=== PATIENT | male | born 1945 | race Caucasian/White ===

== ENCOUNTER 2017-04-16 09:30 | Day surgery (SDC) | payer BC ==
[2017-04-13 08:52] LABS: BASOPHILS 0.3 %; BASOPHILS ABSOLUTE 0.03 10/3/uL (0.0-0.16); EOSINOPHILS 4.7 %; EOSINOPHILS ABSOLUTE 0.46 10/3/uL (0.0-0.53); IMMATURE GRANULOCYTES 0.4 %; IMMATURE GRANULOCYTES ABSOLUTE 0.04 10/3/uL (0.0-0.11); LYMPHOCYTES ABSOLUTE 2.27 10/3/uL (0.67-4.30); MEAN CORPUS HGB CONC 33.6 g/dL (32.0-36.0); MEAN PLATELET VOLUME 9.8 fL (9.2-13.0); MONOCYTES ABSOLUTE 1.09 10/3/uL (0.21-1.20); NEUTROPHILS 60.6 %; NEUTROPHILS ABSOLUTE 5.99 10/3/uL (2.02-8.40); RBC DISTRIBUTION WIDTH 15.7 % (12.0-16.0); WHITE BLOOD CELLS 9.9 10/3/uL (4.5-10.5)
[2017-04-13 08:53] LABS: HEMATOCRIT 41.4 % (40.0-51.0); HEMOGLOBIN 13.9 g/dL (13.6-17.8); MANUAL DIFF NO %; MEAN CORPUSCULAR VOLUME 89.4 fL (80-100); PLATELET COUNT 337 10/3/uL (150-400); RED CELL COUNT 4.63 10/6/uL (4.7-6.1)
[2017-04-13 08:58] LABS: INTERNATIONAL NORMAL RATI 1.1 UNITS (-); PARTIAL THROMBO TIME 33.1 SEC (22.5-37.2)
[2017-04-13 08:59] LABS: PROTIME (NOT ORD) 13.9 SEC (12.0-14.5)
[2017-04-13 09:09] LABS: CHLORIDE, SERUM 103 MMOL/L (96-112); CHOL/HDL RATIO(NOT ORDER) 3.4 (0-5); CHOLESTEROL 164 MG/DL (< 200); CO2 (CARBON DIOXIDE) 27 MMOL/L (24-34); CREATININE 0.98 MG/DL (0.70-1.30); GFR AFRICAN AMERICAN 91 ML/MIN (>=60); GFR NON AFRICAN AMERICAN 78 ML/MIN (>=60); GLUCOSE, SERUM 138 MG/DL (60-99); HDL CHOLESTEROL 48 MG/DL (> 39); NON-HDL CHOLESTEROL 116 MG/DL (< 160); POTASSIUM, SERUM 3.8 MMOL/L (3.5-5.3); SGOT(AST) 21 U/L (5-40); SGPT(ALT) 25 U/L (5-65); SODIUM, SERUM 139 MMOL/L (135-148); TOTAL BILIRUBIN 0.4 MG/DL (0-1.2)
[2017-04-13 09:12] LABS: ALBUMIN 3.8 G/DL (3.5-5.0); ALKALINE PHOSPHATASE 178 U/L (45-117); BUN (BLOOD UREA NITROGEN) 16 MG/DL (6-23); CALCIUM, SERUM 9.1 MG/DL (8.5-10.4); GLOBULIN 3.9 G/DL (2.5-4.1); LDL CHOLESTEROL 95 MG/DL (< 130); TOTAL PROTEIN 7.7 G/DL (6.0-8.5); TRIGLYCERIDE 106 MG/DL (< 150)
[2017-04-13 09:20] LABS: ASCORBIC ACID (UR NOT ORDER) NEG (NEG); BILIRUBIN, URINE NEGATIVE (NEG); KETONE, URINE NEGATIVE (NEG); LEUKOCYTE ESTERASE(NOT OR NEG (NEG); WBC (NOT ORDERED) (RFLEX) 1 (0-5)
--- NOTE | ~2017-04-16 | OP ---
Record Of Operation [facility] [address] [place]. [address] NAME: SMITA HUNTER : 49 STATUS : REG [facility] [place] PAT#: [id number] AGE: 71 ADM/REG DATE : 04/16/17 MR#: [id number] REPORT SERV DATE: 04/16/17 DICTATED BY: MARIO SIFUENTES DATE: 04/16/17 REPORT STATUS : Draft TRANSCRIBED BY: MODL DATE: 04/16/17 DATE OF PROCEDURE: PREOPERATIVE DIAGNOSIS: Lap band tubing leak. POSTOPERATIVE DIAGNOSIS: Lap band tubing leak. OPERATION: Replacement of a port tubing section of the lap band. ANESTHESIA: General endotracheal. COMPLICATIONS: None. DESCRIPTION OF PROCEDURE: The patient was taken to the operative room and after adequate general endotracheal anesthesia, was prepped and draped in a sterile manner. We made an incision on top of the access port. Carefully we excised the encapsulation tissue around the access port. the access port from the sutures. Removed the access port. When we pulled that out, we verified there was a leak at the level of the metal connector close to the access port. It was clearly eroded and kind of wear off on the area that it was rubbing against the metal connector, so we transected the tubing away from the metal connector, got a new port with a new section of the tubing and then put it back in place with a new metal connector and then we flushed and aspirated and verified that all the system was fine. There was no evidence of leakage and then we sutured with four stitches of Nurolon to the fascia and then closed the subcutaneous tissue with Vicryl 2-0 in interrupted fashion and closed the skin with subcuticular Monocryl 4-0. The patient tolerated the procedure well without any problems. ADELA Mario Leigh M.D. / [id number] CC: Abraham Trevino M.D.
[~2017-04-16 09:30] MED LIST: ALEVE220 MG PO; ALLERGY IM; ALLERGY INJ IM; ASAB PO; BENICAR HCT1 TA2 PO; CEFADROXIL PO; CELEBREX2 PO; CIALIS20 MG PO; CO Q-10100 MG PO; COQ10100 MG OR; CYMBALTA30 PO; CYMBALTA60 PO; DULERA 200 MCG/13 GM INH; FISH OIL1200 MG PO; FISH-EPA1000 MG PO; FLEX PO; GLUCCHONDR PO; GLUCOPHAGE1000 MG PO; GLUCPH PO; IBU-200200 MG PO; KLOR-CON 1010 MEQ PO; KLOR-CON M2020 MEQ PO; KOREAN GINSENG PO; L20 PO; LIPITOR20 PO; LYRICA100 MG PO; LYRICA50 PO; MULTIPLE VIT PO; NIACIN 500 PO; NORCO1 TA2 PO; NORV5 PO; PCET PO; PRAV10 PO; PREVAGEN PO; PROAIRRESP INH; PROBIOTICS PO; PROTONIX20 MG PO; TRAZ50 PO; TYLENOL ARTH650 MG PO; V5 PO; VYVANSE40 MG OR; VYVANSE50 MG PO; WELLSR150 PO; ZESTORETIC PO; ZETIA PO; [UNRECOGNIZED DRUG - OTHER] PO
[2017-06-09] MEDS ORDERED: [UNRECOGNIZED DRUG - OTHER] PO (08:51)
== END 2017-04-16 14:37 | disposition home or self-care (01) ==
LOC: SDC 09:30
PROVIDERS: Surgery
PROC: 0DV60CZ Restriction of Stomach with Extraluminal Device, Open Approach (ICD-10-PCS; 2017-04-16)
PROC: 0DP60CZ Removal of Extraluminal Device from Stomach, Open Approach (ICD-10-PCS; principal; 2017-04-16 10:45)
DX: K95.09 Other complications of gastric band procedure (principal); I10 Essential (primary) hypertension; E78.5 Hyperlipidemia, unspecified; E66.9 Obesity, unspecified; E11.9 Type 2 diabetes mellitus without complications; J45.909 Unspecified asthma, uncomplicated; I25.10 Atherosclerotic heart disease of native coronary artery without angina pectoris; F32.9 Major depressive disorder, single episode, unspecified; D64.9 Anemia, unspecified; Z95.5 Presence of coronary angioplasty implant and graft; Z88.5 Allergy status to narcotic agent; Z98.890 Other specified postprocedural states
CPT/HCPCS: 80053; 80061; 81001; 82962; 85025; 85610; 85730; 88300; 93005; J0690; J2370; J2405; J2710; J3010